=== PATIENT | female | born 1995 | race African-American/Black ===

== ENCOUNTER 2018-07-30 10:25 | Emergency (ER) | payer OTHER ==
[~2018-07-30] VITALS: Ht 154.9 cm; Wt 38.2 kg
[2018-07-30 10:37] VITALS: TEMP 97.1
[2018-07-30] MEDS ORDERED: JUNEL 1/20 20 M1 TAB (10:43)
[2018-07-30 11:10] LABS: BASO % 0.6 % (0.0-2.0); EOS # 0.1 (0.0-0.7); EOS % 1.5 % (0-4.0); GRAN # 2.6 (1.4-6.5); GRAN % 46.9 % (42.2-75.2); HEMATOCRIT 40.2 % (35.0-45.0); HEMOGLOBIN 13.8 g/dl (12.0-15.0); LYMPH # 2.3 (1.2-3.4); LYMPH % 42.9 % (20.0-51.0); MEAN CELL VOLUME 91 fl (80.0-95.0); MEAN CORPUSCULAR HEMOGLOBIN 31 pg (26.0-32.0); MEAN CORPUSCULAR HGB CONC 34 g/dl (33.0-37.0); MEAN PLATELET VOLUME 9.1 fl (7.4-10.4); MONO # 0.4 (0.1-0.6); MONO % 7.9 % (1.7-9.3); PLATELET COUNT 278 K/mm3 (130-400); REDCELL DISTRIBUTION WIDTH-CV 11.9 % (11.5-14.5)
[2018-07-30 11:14] LABS: COLLECTION METHOD CLEAN CATCH
[2018-07-30 11:18] LABS: MUCOUS Present /lpf; PH 6 (5-8); URINE APPEARANCE Hazy; URINE BACTERIA None Seen /hpf; URINE BILIRUBIN Negative (NEGATIVE); URINE BLOOD 1+ (NEGATIVE); URINE COLOR Yellow; URINE GLUCOSE Negative (NEGATIVE); URINE KETONE Negative (NEGATIVE); URINE LEUKOCYTE ESTERASE Negative (NEGATIVE); URINE NITRATE Negative (NEGATIVE); URINE PROTEIN(semi-quant) Negative (NEGATIVE); URINE UROBILINOGEN >=4.0 mg/dL (NEGATIVE)
[2018-07-30 11:25] LABS: ALANINE AMINOTRANSFERASE 11 U/L (9-52); ALBUMIN 4.5 gm/dL (3.5-5.0); ALKALINE PHOSPHATASE 64 U/L (50-136); ANION GAP 12 mmol/L (7-16); AST,SGOT 21 U/L (15-37); BILIRUBIN,TOTAL 0.6 mg/dL (0.0-1.0); BLOOD UREA NITROGEN 12 mg/dL (7-17); C-REACTIVE PROTEIN < 0.5 mg/dL (0.0-0.9); CARBON DIOXIDE 26 mmol/L (22-30); CHLORIDE 103 mmol/L (98-107); CREATININE, serum 0.56 (0.52-1.25); GLUCOSE 88 mg/dL (74-106); LIPASE 62 U/L (23-300); POTASSIUM 4.1 mmol/L (3.4-5.0); SODIUM 142 mmol/L (137-145); TOTAL PROTEIN 8.3 gm/dL (6.4-8.2)
[2018-07-30 12:02] VITALS: BP 111/80; PULSE 68
== END 2018-07-30 12:05 | disposition home or self-care (01) ==
LOC: COL.ER 10:25
PROVIDERS: Family Medicine
DX: R10.31 Right lower quadrant pain (principal)

== ENCOUNTER 2019-01-17 17:05 | Emergency (ER) | payer OTHER ==
[~2019-01-17] VITALS: Ht 154.9 cm; Wt 37.7 kg
[~2019-01-17 17:05] MED LIST: JUNEL 1/20 20 M1 TAB
[2019-01-17 17:17] VITALS: TEMP 97
[2019-01-17 19:01] VITALS: BP 120/80; PULSE 80
== END 2019-01-17 19:02 | disposition home or self-care (01) ==
LOC: COL.ER 17:05
DX: S00.93XA Contusion of unspecified part of head, initial encounter (principal); R40.2412 Glasgow coma scale score 13-15, at arrival to emergency department; V43.52XA Car driver injured in collision with other type car in traffic accident, initial encounter